=== PATIENT | female | born 1980 | race Caucasian/White ===

== ENCOUNTER 2017-07-31 13:35 | Emergency (ER) | payer MEDICAID ==
[2015-12-12 05:12] VITALS: BMI 46.8
[~2017-07-31 13:35] MED LIST: BENADRYL25 MG PO; BUPRENORPHINE HC8 MG SL; IBUPROFEN600 MG PO; PHENERGAN25 M1 PO; PRENATAL COMPLE1 TAB PO
[2017-07-31 13:58] LABS: BASOPHILS 0.5 % (0-2); EOSINOPHILS 1.2 % (0-7); HEMATOCRIT 38.8 % (36.0-48.0); HEMOGLOBIN 13.1 g/dL (12-16); IMMATURE GRANULOCYTES 0.1 % (0-5); LYMPHOCYTES 30.3 % (15-50); MCH 31.1 pg (26.0-34.0); MCHC 33.8 g/dL (31.0-37.0); MCV 92.2 fL (80.0-100.0); MEAN PLATELET VOLUME 10.6 fL (7.4-10.4); MONOCYTES 5.4 % (2-11); NEUTROPHILS 62.5 % (40-80); PLATELET COUNT 226 10x3/uL (130-400); RBC 4.21 10x6/uL (4.00-5.40); WBC 7.7 10x3/uL (4.8-10.8)
[2017-07-31 14:10] LABS: APPEARANCE TURBID (CLEAR); BILIRUBIN NEGATIVE (NEGATIVE); GLUCOSE NEGATIVE (NEGATIVE); KETONE NEGATIVE (NEGATIVE); NITRITE NEGATIVE (NEGATIVE); PROTEIN TRACE mg/dL (NEGATIVE); UROBILINOGEN NORMAL (NORMAL)
[2017-07-31 14:14] LABS: ALKALINE PHOSPHATASE 64 U/L (46-116); ALT (SGPT) 26 U/L (10-68); BILIRUBIN - TOTAL 0.23 mg/dL (0.2-1.3); CALC OSMOLALITY 276 mosm/kg (275-300); CALCIUM 8.9 mg/dL (8.5-10.1); CARBON DIOXIDE 27.9 mmol/L (21.0-32.0); CHLORIDE - SERUM 102 mmol/L (98-107); CREATININE - SERUM 0.7 mg/dL (0.6-1.3); GLUCOSE 83 mg/dL (74-106); POTASSIUM - SERUM 3.3 mmol/L (3.5-5.1); PROTEIN - SERUM 7.8 g/dL (6.4-8.2); SODIUM 140 mmol/L (136-145); UREA NITROGEN 9 mg/dL (7-18); eGFR NON AFRICAN AMERICAN > 90 mL/min (90-120)
[2017-07-31 14:14] LABS: BACTERIA MODERATE /hpf (NONE SEEN); RED CELLS - URINE >50 /hpf (0-5)
[2017-07-31 14:37] LABS: HCG - QUANTITATIVE (MATERNAL) 7239 mIU/mL
== END 2017-07-31 16:04 | disposition home or self-care (01) ==
LOC: D.ER 13:35
PROVIDERS: Emergency Medicine
DX: O20.9 Hemorrhage in early pregnancy, unspecified (principal); Z3A.08 8 weeks gestation of pregnancy; F17.200 Nicotine dependence, unspecified, uncomplicated

== ENCOUNTER 2018-03-23 23:41 | Emergency (ER) | payer MEDICAID ==
[~2018-03-23] VITALS: Ht 162.6 cm; Wt 100.0 kg
[2018-03-23 23:55] VITALS: Ht 162.6 cm; Wt 100.0 kg
[2018-03-23] MEDS ORDERED: ZYRTEC-D T1 TAB.SR . PO (23:57)
[2018-03-24] MEDS ORDERED: MEDROL DOSE PACK4 MG PO (00:46)
[2018-03-24] MEDS ORDERED: DOXYCYCLINE HY100 M2 PO (00:46)
[2018-03-24 00:54] VITALS: BP 115/68
== END 2018-03-24 00:54 | disposition home or self-care (01) ==
LOC: D.ER 23:41
DX: J01.90 Acute sinusitis, unspecified (principal); R09.89 Other specified symptoms and signs involving the circulatory and respiratory systems; I10 Essential (primary) hypertension

== ENCOUNTER 2019-08-28 23:55 | Emergency (ER) | payer SELFPAY ==
[~2019-08-28] VITALS: Ht 162.6 cm; Wt 100.0 kg
[~2019-08-28 23:55] MED LIST changes: +DOXYCYCLINE HY100 M2 PO; +MEDROL DOSE PACK4 MG PO; +ZYRTEC-D T1 TAB.SR . PO
[2019-08-29] VITALS: Ht 162.6 cm; Wt 100.0 kg
[2019-08-29] MEDS ORDERED: LINZESS290 MCG PO (00:02)
[2019-08-29] MEDS ORDERED: [UNRECOGNIZED DRUG - REMARK] (00:02)
[2019-08-29] MEDS ORDERED: BUPRENORPHIN-N1 EACH SL (00:03)
[2019-08-29] MEDS ORDERED: AMOXICILLIN500 M1 PO (00:28)
[2019-08-29 01:00] VITALS: BP 127/64
== END 2019-08-29 01:00 | disposition home or self-care (01) ==
LOC: D.ER 23:55
DX: K02.9 Dental caries, unspecified (principal); I10 Essential (primary) hypertension; Z72.0 Tobacco use